=== PATIENT | male | born 1995 | race Caucasian/White ===

== ENCOUNTER 2021-01-26 12:51 | Outpatient (REF) | payer BC, SELFPAY | END 2021-01-26 12:52 | disposition home or self-care (01) | LOC: HO.LAB 12:51 | PROVIDERS: Visit Provider Internal Medicine | DX: Z20.822 Contact with and (suspected) exposure to COVID-19 (principal) | CPT/HCPCS: 36415; C9803; U0003; U0005 ==

== ENCOUNTER 2021-11-05 15:10 | Outpatient (REF) | payer BC, SELFPAY ==
[2021-11-05 15:50] LABS: Binax Internal Control QC Valid; Binax Now Covid-19 Ag Positive (Negative)
== END 2021-11-05 15:11 | disposition home or self-care (01) ==
LOC: HO.LAB 15:10
PROVIDERS: Visit Provider Internal Medicine
DX: Z20.822 Contact with and (suspected) exposure to COVID-19 (principal)
CPT/HCPCS: 36415; C9803